=== PATIENT | female | born 1945 | race Caucasian/White ===

== ENCOUNTER 2020-09-29 16:19 | Inpatient (IN) | payer MEDICARE, BC ==
[2020-09-29] MEDS ORDERED: ACETAMINOPHEN TAB 500 MG TAB PO STA (18:07)
[2020-09-29] MEDS ORDERED: SODIUM CHLORIDE 0.9% 1,000 ML IV ONE (18:08)
--- NOTE | 2020-09-29 18:30 | ED ---
General Adult HPI - General Chief complaint: Nausea/Vomiting/Diarrhea Stated complaint: Diarreha Time Seen by Provider: 09/29/20 17:56 Source: patient, family, RN notes reviewed, old records reviewed Mode of arrival: wheelchair Limitations: no limitations - History of Present Illness Initial comments: This patient's a 75-year-old female who presents emergency room today with 10 days of fever or chills diarrhea. She's been exposed positive covid infection this past 2 weeks as her family members have all had positive tests for covid 19 infection. Patient states that she's been feeling weak, multiple near falls due to weakness dehydration from the diarrhea. Patient denies any significant shortness of breath at this time. - Related Data Allergies Allergy/AdvReac Type Severity Reaction Status Date / Time Sulfa (Sulfonamide Allergy Anaphylaxis Verified 09/29/20 16:36 Antibiotics) Review of Systems ROS Statement: Those systems with pertinent positive or pertinent negative responses have been documented in the HPI. ROS Other: All systems not noted in ROS Statement are negative. Past Medical History Past Medical History: Coronary Artery Disease (CAD), COPD, Diabetes Mellitus, Hyperlipidemia, Hypertension, Rheumatoid Arthritis (RA) History of Any Multi-Drug Resistant Organisms: None Reported Past Surgical History: No Surgical Hx Reported Past Psychological History: No Psychological Hx Reported Smoking Status: Former smoker Past Alcohol Use History: None Reported Past Drug Use History: None Reported General Exam - General Exam Comments Initial Comments: 75-year-old female. Alert. No distress. Patient appears somewhat weak. Limitations: no limitations General appearance: alert, in no apparent distress Head exam: Present: atraumatic, normocephalic, normal inspection Eye exam: Present: normal appearance, PERRL, EOMI. Absent: scleral icterus, conjunctival injection, periorbital swelling ENT exam: Present: normal exam, mucous membranes moist Neck exam: Present: normal inspection. Absent: tenderness, meningismus, lymphadenopathy Respiratory exam: Present: normal lung sounds bilaterally. Absent: respiratory distress, wheezes, rales, rhonchi, stridor Cardiovascular Exam: Present: regular rate, normal rhythm, normal heart sounds. Absent: systolic murmur, diastolic murmur, rubs, gallop, clicks GI/Abdominal exam: Present: soft, normal bowel sounds. Absent: distended, tenderness, guarding, rebound, rigid Extremities exam: Present: normal inspection, full ROM, normal capillary refill. Absent: tenderness, pedal edema, joint swelling, calf tenderness Back exam: Present: normal inspection Neurological exam: Present: alert, oriented X3, CN II-XII intact Psychiatric exam: Present: normal affect, normal mood Skin exam: Present: warm, dry, intact, normal color. Absent: rash Course Vital Signs 09/29/20 16:30 Temperature 102.0 F H Pulse Rate 90 Respiratory 22 Rate Blood Pressure 121/64 O2 Sat by Pulse 93 L Oximetry Medical Decision Making - Medical Decision Making 75-year-old female presents emergency department today with nausea and diarrhea for the past 10 days. She's been feeling very weak. She appears quickly dehydrated. She started on IV fluid bolus. She was exposed to her family members who all have positive testing. At this time Patient has a positive rapid [place] a test as well. She does have inflammatory markers are elevated including LDH and CRP. Her d-dimer was done to be elevated. Chest x-ray shows evidence of right-sided pneumonia. She was somewhat hypoxic 93% on room air. Discussed with patient's length symptoms dehydration weakness we will admit the Patient. Discussed the case with Dr. Blanco And Dr. Brito was an emergency department to evaluate Patient. - Lab Data Result diagrams: 09/29/20 18:07 09/29/20 18:07 Lab Results 09/29/20 09/29/20 09/29/20 Range/Units 18:07 18:07 18:07 WBC 4.1 (3.8-10.6) k/uL RBC 4.65 (3.80-5.40) m/uL Hgb 14.0 (11.4-16.0) gm/dL Hct 41.3 (34.0-46.0) % MCV 88.7 (80.0-100.0) fL MCH 30.1 (25.0-35.0) pg MCHC 34.0 (31.0-37.0) g/dL RDW 12.6 (11.5-15.5) % Plt Count 125 L (150-450) k/uL Neutrophils % (Manual) 67 % Band Neuts % (Manual) 6 % Lymphocytes % (Manual) 20 % Monocytes % (Manual) 7 % Neutrophils # (Manual) 2.90 (1.3-7.7) k/uL Lymphocytes # (Manual) 0.82 L (1.0-4.8) k/uL Monocytes # (Manual) 0.29 (0-1.0) k/uL Nucleated RBCs 0 (0-0) /100 WBC Manual Slide Review Performed PT 10.2 (9.0-12.0) sec INR 1.0 (<1.2) APTT 23.3 (22.0-30.0) sec D-Dimer 1.56 H (<0.60) mg/L FEU Sodium 132 L (137-145) mmol/L Potassium 5.3 H (3.5-5.1) mmol/L Chloride 101 (98-107) mmol/L Carbon Dioxide 22 (22-30) mmol/L Anion Gap 9 mmol/L BUN 16 (7-17) mg/dL Creatinine 0.72 (0.52-1.04) mg/dL Est GFR (CKD-EPI)AfAm >90 (>60 ml/min/1.73 sqM) Est GFR (CKD-EPI)NonAf 82 (>60 ml/min/1.73 sqM) Glucose 127 H (74-99) mg/dL Plasma Lactic Acid Parviz (0.7-2.0) mmol/L Calcium 8.6 (8.4-10.2) mg/dL Magnesium 1.9 (1.6-2.3) mg/dL Total Bilirubin 1.1 (0.2-1.3) mg/dL AST 60 H (14-36) U/L ALT 21 (4-34) U/L Alkaline Phosphatase 58 (38-126) U/L Lactate Dehydrogenase 1206 H (313-618) U/L C-Reactive Protein 52.5 H (<10.0) mg/L Total Protein 7.1 (6.3-8.2) g/dL Albumin 3.9 (3.5-5.0) g/dL Coronavirus (PCR) (Not Detectd) 09/29/20 09/29/20 Range/Units 18:07 18:30 WBC (3.8-10.6) k/uL RBC (3.80-5.40) m/uL Hgb (11.4-16.0) gm/dL Hct (34.0-46.0) % MCV (80.0-100.0) fL MCH (25.0-35.0) pg MCHC (31.0-37.0) g/dL RDW (11.5-15.5) % Plt Count (150-450) k/uL Neutrophils % (Manual) % Band Neuts % (Manual) % Lymphocytes % (Manual) % Monocytes % (Manual) % Neutrophils # (Manual) (1.3-7.7) k/uL Lymphocytes # (Manual) (1.0-4.8) k/uL Monocytes # (Manual) (0-1.0) k/uL Nucleated RBCs (0-0) /100 WBC Manual Slide Review PT (9.0-12.0) sec INR (<1.2) APTT (22.0-30.0) sec D-Dimer (<0.60) mg/L FEU Sodium (137-145) mmol/L Potassium (3.5-5.1) mmol/L Chloride (98-107) mmol/L Carbon Dioxide (22-30) mmol/L Anion Gap mmol/L BUN (7-17) mg/dL Creatinine (0.52-1.04) mg/dL Est GFR (CKD-EPI)AfAm (>60 ml/min/1.73 sqM) Est GFR (CKD-EPI)NonAf (>60 ml/min/1.73 sqM) Glucose (74-99) mg/dL Plasma Lactic Acid Parviz 1.3 (0.7-2.0) mmol/L Calcium (8.4-10.2) mg/dL Magnesium (1.6-2.3) mg/dL Total Bilirubin (0.2-1.3) mg/dL AST (14-36) U/L ALT (4-34) U/L Alkaline Phosphatase (38-126) U/L Lactate Dehydrogenase (313-618) U/L C-Reactive Protein (<10.0) mg/L Total Protein (6.3-8.2) g/dL Albumin (3.5-5.0) g/dL Coronavirus (PCR) Detected A (Not Detectd) - Radiology Data Radiology results: report reviewed Right pleural reaction peripheral right-sided pneumonia. Normal heart. No heart failure. Disposition Clinical Impression: COVID-19, Dehydration, Diarrhea, Hypoxia, Pneumonia Disposition: ADMITTED IP TO THIS HOSP Condition: Stable Is patient prescribed a controlled substance at d/c from ED?: No Referrals: Tony Mooney MD [Primary Care Provider] - 1-2 days Time of Disposition: 20:07
[2020-09-29] MEDS: SODIUM CHLORIDE 0.9% 1,000 ML IV SCH (18:47)
[2020-09-29 19:08] LABS: ALT 21 U/L (4-34); AST 60 U/L (14-36); African American GFR (CKD) >90 (>60 ml/min/1.73 sqM); Albumin 3.9 g/dL (3.5-5.0); Alkaline Phosphatase 58 U/L (38-126); Anion Gap 9 mmol/L; Blood Urea Nitrogen 16 mg/dL (7-17); C Reactive Protein 52.5 mg/L (<10.0); Calcium 8.6 mg/dL (8.4-10.2); Carbon Dioxide 22 mmol/L (22-30); Chloride 101 mmol/L (98-107); Glucose 127 mg/dL (74-99); LDH 1206 U/L (313-618); Magnesium 1.9 mg/dL (1.6-2.3); Non-African American GFR(CKD) 82 (>60 ml/min/1.73 sqM); Sodium 132 mmol/L (137-145); Total Bilirubin 1.1 mg/dL (0.2-1.3); Total Protein 7.1 g/dL (6.3-8.2)
[2020-09-29 19:11] LABS: Partial Thromboplastin Time 23.3 sec (22.0-30.0); Potassium 5.3 mmol/L (3.5-5.1); Prothrombin Time 10.2 sec (9.0-12.0)
[2020-09-29 19:14] LABS: D-Dimer 1.56 mg/L FEU (<0.60)
[2020-09-29 19:19] LABS: HCT 41.3 % (34.0-46.0); MCH 30.1 pg (25.0-35.0); MCV 88.7 fL (80.0-100.0); Platelet Count 125 k/uL (150-450); RBC 4.65 m/uL (3.80-5.40); RDW 12.6 % (11.5-15.5); WBC 4.1 k/uL (3.8-10.6)
--- NOTE | 2020-09-29 19:20 | XR ---
EXAMINATION TYPE: XR chest 1V portable DATE OF EXAM: 09/29/2020 COMPARISON: NONE HISTORY: Pneumonia. Chest pain TECHNIQUE: Single view FINDINGS: There is some increased density over the periphery of the right lung consistent with mild p neumonia. There is slight blunting right costophrenic angle. Heart size is normal. There are no hilar masses. Mediastinum is intact. Thoracic aorta is atheromatous. IMPRESSION: There is right pleural reaction and peripheral right side pneumonia. Normal heart. No hea rt failure.
[2020-09-29 19:58] LABS: Band Neutrophils % 6 %; Lymphocytes # (M) 0.82 k/uL (1.0-4.8); Monocytes # (M) 0.29 k/uL (0-1.0); Neutrophils % (M) 67 %; Nucleated Red Blood Cells 0 /100 WBC (0-0); Total Cells Counted 100
[2020-09-29] MEDS ORDERED: IBUPROFEN 400 MG TAB PO PRN (20:08)
[2020-09-29] MEDS ORDERED: NALOXONE 0.4 MG/ML 1 ML VIAL IV PRN (20:08)
[2020-09-29] MEDS ORDERED: KETOROLAC 15 MG/ML 1 ML VIAL IVP PRN (20:08)
[2020-09-29] MEDS ORDERED: MORPHINE SULFATE 4 MG/ML SYRINGE IV PRN (20:08)
[2020-09-29] MEDS ORDERED: ACETAMINOPHEN TAB 325 MG TAB PO PRN (20:08)
[2020-09-29] MEDS ORDERED: ONDANSETRON 4 MG/2 ML VIAL IVP PRN (20:08)
--- NOTE | 2020-09-29 20:47 | CT ---
EXAMINATION TYPE: CT angio chest DATE OF EXAM: 09/29/2020 COMPARISON: None HISTORY: elevated d dimer/ covid + CT DLP: 250.8 mGycm Automated exposure control for dose reduction was used. CONTRAST: Performed with IV Contrast, patient injected with 100 mL of Isovue 370. There are 3-D post processed images. There are some peripheral patchy groundglass interstitial pulmon alem infiltrates bilaterally. Heart size is normal. There is no pericardial effusion. There is no pleu ral effusion. Upper abdominal soft tissues are intact. There are no hilar masses. There are multiple mediastinal lymph nodes that measure up to 1 cm. Thoracic aorta is atheromatous. There are bilateral bronchial lymph nodes measuring up to 1 cm. There is coronary artery calcification. Thoracic aorta sh ows no aneurysm. The ascending aorta measures 3.2 cm. The bony thorax is intact. I see no evidence of filling defect in the pulmonary arteries. There is a 2.5 cm cavitating infiltrate in the lingula left upper lobe adjacent to the left cardiac b order. IMPRESSION: Cavitating left pulmonary infiltrate is nonspecific. Peripheral bilateral groundglass pulmonary interstitial infiltrates. No evidence of pulmonary embolism. Nonspecific mediastinal and bronchial mild adenopathy.
[2020-09-29] MEDS ORDERED: ENOXAPARIN 30 MG/0.3 ML SYRINGE SQ SCH (21:00)
[2020-09-29] MEDS ORDERED: HYDROcodone/APAP 5-325MG 1 EACH TAB PO PRN (22:16)
[2020-09-29] MEDS ORDERED: TEMAZEPAM 15 MG CAP PO PRN (22:16)
[2020-09-29] MEDS ORDERED: ALPRAZolam 0.25 MG TAB PO PRN (22:16)
[2020-09-29] MEDS ORDERED: ENOXAPARIN 30 MG/0.3 ML SYRINGE SQ STA (23:20)
[2020-09-29] MEDS: CALCIUM CARB-VIT D 500MG-200UN 1 EACH TAB PO SCH (23:20)
[2020-09-29] MEDS: FAMOTIDINE 20 MG TAB PO SCH (23:26)
[2020-09-29] MEDS: ZINC SULFATE 220 MG CAP PO SCH (23:42)
[2020-09-30 06:40] LABS: Basophils % (A) 1 %; Eosinophils % (A) 1 %; HCT 37.8 % (34.0-46.0); HGB 12.5 gm/dL (11.4-16.0); Lymphocytes # (A) 0.5 k/uL (1.0-4.8); Lymphocytes % (A) 14 %; MCH 29.9 pg (25.0-35.0); MCV 90.6 fL (80.0-100.0); Monocytes # (A) 0.3 k/uL (0-1.0); Monocytes % (A) 8 %; Neutrophils # (A) 2.7 k/uL (1.3-7.7); Neutrophils % (A) 76 %; Platelet Count 138 k/uL (150-450); RBC 4.17 m/uL (3.80-5.40); RDW 12.7 % (11.5-15.5); WBC 3.6 k/uL (3.8-10.6)
[2020-09-30 07:24] LABS: Glucose,Whole Blood 99 mg/dL (75-99)
--- NOTE | 2020-09-30 07:45 | HP ---
HISTORY AND PHYSICAL DATE OF SERVICE: 09/29/2020 CHIEF COMPLAINT: Nausea, vomiting, diarrhea, dehydration, and COVID-19. HISTORY OF PRESENT ILLNESS: This 75-year-old woman with a past medical history of multiple medical problems including COPD, CAD, diabetes, hypertension, hyperlipidemia, being followed by Dr. Mooney in the outpatient setting was not feeling well over the past 10 days with fever and chills and diarrhea. The patient was exposed to COVID. The patient has had multiple family members. Apparently the patient drove her grandson to a green party and he was living with them. The family was positive for COVID-19. Currently the patient is feeling weak. The patient has not been able to keep anything down. Patient has diarrhea, occasional cough. Patient came to [facility] and was admitted for further evaluation and treatment. The patient had multiple inflammatory markers of COVID including elevated LDH of 1206, CRP is 52.5, D-dimer is 1.56. COVID-19 rapid test was positive and the patient was admitted for further evaluation and treatment. A chest CT was also done which showed evidence of cavitating left pulmonary infiltrate with a nonspecific and peripheral bilateral ground-glass opacities and no evidence of pulmonary embolism. Patient admitted for further evaluation and treatment. The chest x-ray and EKG were personally reviewed by me. There is no history of headache, loss of consciousness, seizures at this time. The CT scan showed extensive bilateral inflammatory pulmonary lesions and also possibly cavitating lesion as well. The EKG which was personally reviewed by me showed QTc of 396 and normal sinus rhythm and nonspecific changes. There is no history of fever, rigors, chills at this time. PAST MEDICAL HISTORY: History of COPD, CAD, diabetes, hypertension, hyperlipidemia, rheumatoid arthritis. MEDICATIONS: Home medication list is not available. ALLERGIES: SULFA. FAMILY HISTORY: No history of heart disease or strokes in the family. SOCIAL HISTORY: Previous history of smoking. No history of current smoking or alcohol intake. REVIEW OF SYSTEMS: ENT: No diminished hearing or diminished vision. CARDIOVASCULAR: No angina or palpitations. RESPIRATORY: As mentioned earlier. GI: As mentioned earlier. : No dysuria. ALLERGY/IMMUNOLOGY: No asthma or hayfever. MUSCULOSKELETAL: As mentioned earlier. HEMATOLOGY/ONCOLOGY: No history of anemia. ENDOCRINE: As mentioned earlier. CONSTITUTIONAL: As mentioned earlier. DERMATOLOGY: Negative. RHEUMATOLOGY: Negative. PSYCHIATRY: As mentioned earlier. PHYSICAL EXAMINATION: GENERAL: Patient is alert and oriented times three. VITAL SIGNS: Pulse 90, blood pressure 120/64, respirations 22, temperature 102, pulse ox 93% on room air HEENT: Conjunctivae normal. Oral mucosa is moist. NECK: No jugular venous distention. No carotid bruits. No lymph node enlargement. RESPIRATORY: Breath sounds diminished at the bases. A few scattered rhonchi and crackles. HEART: S1 and S2, muffled. ABDOMEN: Soft, no tenderness. No masses palpable. EXTREMITIES: No edema, no swelling. NERVOUS: Higher functions as mentioned earlier. Moves all four limbs. No focal motor deficits. LYMPHATICS: No lymph nodes palpable in the neck or axillae. SKIN: No rashes. JOINTS: No active deforming arthropathy. LABS: Platelets are 125 and D-dimer is 1.5. Sodium 132, potassium 5.3, LDH 1206, CRP is 52.5. ASSESSMENT: 1. Acute COVID-19 infection with bilateral interstitial viral pneumonia with possible sepsis present on admission. 2. Possible cavitating pneumonia or possible rheumatoid lung. 3. Thrombocytopenia. 4. Elevated D-dimer with no evidence of pulmonary embolus. 5. Hyponatremia. 6. Hyperkalemia. 7. Elevated random glucose. 8. Increased AST. 9. Increased LDH and CRP. 10.History of coronary artery disease. 11.History of chronic obstructive pulmonary disease. 12.Diabetes mellitus type 2. 13.Hypertension. 14.Hyperlipidemia. 15.History of rheumatoid arthritis. 16.Remote history of nicotine dependence. 17.FULL CODE. RECOMMENDATIONS AND DISCUSSION: This is 75-year-old woman who presented with multiple complex medical issues, we will monitor the patient closely. I recommend continue the current medications, empiric antibiotics, steroids, Lovenox. Otherwise, we will also consult Pulmonary and Infectious Disease. The patient might be a candidate for Remdesivir. Inflammatory markers will be monitored daily. Prognosis is extremely guarded because of multiple complex medical issues. Discussed with the patient who understands. Further recommendations to follow. MMODL / IJN: [id number] /
[2020-09-30] MEDS: ZINC SULFATE 220 MG CAP PO SCH ×2 (08:57→20:30)
[2020-09-30] MEDS: CALCIUM CARB-VIT D 500MG-200UN 1 EACH TAB PO SCH ×2 (08:57→17:08)
[2020-09-30] MEDS: FAMOTIDINE 20 MG TAB PO SCH ×2 (08:57→20:30)
[2020-09-30] MEDS: DEXAMETHASONE SOD PHOSPHATE 10 MG/ML 1 ML VIAL IV SCH (08:57)
[2020-09-30] MEDS: ENOXAPARIN 40 MG/0.4 ML SYRINGE SQ SCH ×2 (08:57→20:30)
[2020-09-30] MEDS ORDERED: ENOXAPARIN 30 MG/0.3 ML SYRINGE SQ SCH (09:00)
[2020-09-30] MEDS ORDERED: PANTOPRAZOLE 40 MG/10 ML VIAL IV SCH (09:00)
[2020-09-30 09:43] LABS: African American GFR (CKD) 97.5 (60.0-200.0); Anion Gap 7.1 mmol/L (4.00-12.00); BUN/Creat Ratio 18.57 Ratio (12.00-20.00); Carbon Dioxide 25.9 mmol/L (21.6-31.8); Non-African American GFR(CKD) 84.2 (60.0-200.0); Potassium 3.9 mmol/L (3.5-5.5)
[2020-09-30] MEDS ORDERED: REMDESIVIR (EUA) 200 MG in SODIUM CHLORIDE 0.9% 250 ML IVPB ONE (11:00)
[2020-09-30 11:54] LABS: Glucose,Whole Blood 140 mg/dL (75-99)
--- NOTE | 2020-09-30 14:19 | P.CNPUL ---
History of Present Illness Consult date: 09/30/20 Requesting physician: Benjamín Brito Reason for consult: dyspnea, abnormal CXR/CT (CoVID pneumonitis) Chief complaint: Shortness of breath, weakness, fever for 10 days History of present illness: This is a pleasant 75-year-old female patient who follows with Dr. Mooney as her primary care physician. She resides in [place]. She has a history of coronary artery disease, chronic obstructive disease, diabetes mellitus type 2, hypertension, hyperlipidemia, rheumatoid arthritis, remote smoking history. She presented to the emergency room yesterday with a 10 day history of fever, chills, diarrhea. She had been exposed to positive Covid 19 family members. She has been feeling weak, multiple near falls due to weakness, dehydration and diarrhea. She also had some mild shortness of breath. Rapid Covid 19 screen was positive. Chest x-ray revealed right pleural reaction and peripheral right- sided pneumonia. Computed tomography scan of the chest revealed a cavitating left pulmonary infiltrate, nonspecific. There is peripheral bilateral groundglass pulmonary interstitial infiltrates. No evidence of pulmonary embolism. She is seen today in consultation on the regular medical floor. She is awake and alert in no acute distress. She is febrile with a temperature of 100.0. She is maintaining O2 saturations in the 90s on room air. Currently 92%. White count 3.6. Hemoglobin 12.5. Lymphocytes 0.5. Sodium 139. Potassium 3.9. Creatinine 0.7. Pro-calcitonin 0.10. Ferritin 359. D-dimer 1.56. LDH 1206. C-reactive protein 52.5. Review of Systems REVIEW OF SYSTEMS: CONSTITUTIONAL: Weakness, fatigue, near falls, diarrhea and dehydration. Denies any recent significant weight loss or weight gain. EYES: Denies change in vision. EARS, NOSE, MOUTH, THROAT: Denies headaches, denies sore throat. CARDIOVASCULAR: Denies chest pain, palpitations or syncopal episodes. RESPIRATORY: Positive for shortness of breath, cough, no congestion or hemoptysis. GASTROINTESTINAL: Positive for diarrhea. Denies change in appetite, denies abdominal pain GENITOURINARY: Denies hematuria, denies infections. MUSKULOSKELETAL: Denies pain, denies swelling. INTEGUMENTARY: Denies rash, denies eczema. NEUROLOGICAL: Denies recent memory loss, no recent seizure activity. PSYCHIATRIC: Denies anxiety, denies depression. HEMATOLOGIC/LYMPHATIC: Denies anemia, denies enlarged lymph nodes. Past Medical History Past Medical History: Coronary Artery Disease (CAD), COPD, Diabetes Mellitus, Hyperlipidemia, Hypertension, Rheumatoid Arthritis (RA) History of Any Multi-Drug Resistant Organisms: None Reported Past Surgical History: No Surgical Hx Reported Past Psychological History: No Psychological Hx Reported Smoking Status: Former smoker Past Alcohol Use History: None Reported Past Drug Use History: None Reported Medications and Allergies Home Medications Medication Instructions Recorded Confirmed Type Albuterol Sulfate [Albuterol 2 puff PO Q6H PRN 09/30/20 09/30/20 History Sulfate Hfa] Ascorbic Acid [Vitamin C] 1,000 mg PO DAILY 09/30/20 09/30/20 History Atorvastatin [Lipitor] 10 mg PO DAILY 09/30/20 09/30/20 History Cholecalciferol [Vitamin D3 (25 1,000 unit PO DAILY 09/30/20 09/30/20 History Mcg = 1000 Iu)] Citalopram Hydrobromide [CeleXA] 20 mg PO DAILY 09/30/20 09/30/20 History Levothyroxine Sodium [Synthroid] 50 mcg PO DAILY 09/30/20 09/30/20 History Losartan [Cozaar] 25 mg PO DAILY 09/30/20 09/30/20 History metFORMIN HCL [Glucophage] 500 mg PO BID-W/MEALS 09/30/20 09/30/20 History Allergies Allergy/AdvReac Type Severity Reaction Status Date / Time Sulfa (Sulfonamide Allergy Anaphylaxis Verified 09/29/20 16:36 Antibiotics) Physical Exam Vitals: Vital Signs Temp Pulse Pulse Resp BP BP Pulse Ox 09/30/20 08:00 73 14 09/30/20 07:00 100.0 F H 73 14 118/55 92 L 09/30/20 04:00 108 H 20 09/30/20 00:30 97.3 F L 108 H 20 127/62 98 09/29/20 23:43 97.9 F 65 16 116/68 95 09/29/20 16:30 102.0 F H 90 22 121/64 93 L Intake and Output 09/29/20 09/30/20 09/30/20 22:59 06:59 14:59 Intake Total 100 Balance 100 Intake: Oral 100 Other: # Voids 1 Weight 65.771 kg 65.771 kg GENERAL EXAM: Alert, active, comfortable in no apparent distress. HEAD: Normocephalic. EYES: Normal reaction of pupils, equal size. NOSE: Clear with pink turbinates. THROAT: No erythema or exudates. NECK: No masses, no JVD. CHEST: No chest wall deformity. LUNGS: Equal air entry with few scattered rhonchi bilaterally CVS: S1 and S2 normal with no audible murmur, regular rhythm. ABDOMEN: No hepatosplenomegaly, normal bowel sounds, no guarding or rigidity. SPINE: No scoliosis or deformity SKIN: No rashes CENTRAL NERVOUS SYSTEM: No focal deficits, tone is normal in all 4 extremities. EXTREMITIES: There is no peripheral edema. No clubbing, no cyanosis. Peripheral pulses are intact. Results - Laboratory Findings CBC and BMP: 09/30/20 06:25 09/30/20 06:25 PT/INR, D-dimer PT 10.2 sec (9.0-12.0) 09/29/20 18:07 INR 1.0 (<1.2) 09/29/20 18:07 D-Dimer 1.56 mg/L FEU (<0.60) H 09/29/20 18:07 Abnormal lab findings: Abnormal Labs 09/29/20 09/29/20 09/29/20 18:07 18:07 18:07 WBC Plt Count 125 L Lymphocytes # Lymphocytes # (Manual) 0.82 L D-Dimer 1.56 H Sodium 132 L Potassium 5.3 H Glucose 127 H POC Glucose (mg/dL) Calcium Ferritin AST 60 H Lactate Dehydrogenase 1206 H C-Reactive Protein 52.5 H Procalcitonin Coronavirus (PCR) 09/29/20 09/29/20 09/29/20 18:30 Unknown Unknown WBC Plt Count Lymphocytes # Lymphocytes # (Manual) D-Dimer Sodium Potassium Glucose POC Glucose (mg/dL) Calcium Ferritin 359.2 H AST Lactate Dehydrogenase C-Reactive Protein Procalcitonin 0.10 H Coronavirus (PCR) Detected A 09/30/20 09/30/20 09/30/20 06:25 06:25 11:53 WBC 3.6 L Plt Count 138 L Lymphocytes # 0.5 L Lymphocytes # (Manual) D-Dimer Sodium Potassium Glucose POC Glucose (mg/dL) 140 H Calcium 8.0 L Ferritin AST Lactate Dehydrogenase C-Reactive Protein Procalcitonin Coronavirus (PCR) - Diagnostic Findings Chest x-ray: image reviewed CT scan - chest: image reviewed Assessment and Plan Assessment: 1 Acute hypoxic respiratory failure secondary to acute CoVID 19 pneumonitis 2 Elevated inflammatory markers secondary to above 3 Dehydration, weakness, diarrhea secondary to above 4 Rheumatoid arthritis 5 Diabetes mellitus 6 Chronic obstructive 7 History of chronic tobacco dependence 8 Coronary artery disease and 9 Hypertension 10 Hyperlipidemia Plan: The patient was seen and evaluated by Dr. Negron She will be initiated on Remdesivir Continue dexamethasone, Lovenox Repeat chest x-ray and labs in a.m. Continue to monitor O2 saturations Action supplementation as needed Continue isolation precautions We will continue to follow and make further recommendations based on her clinical status I, the cosigning physician, performed a history & physical examination of the patient. Lungs sounds with bilateral rhonchi. Maintaining good O2 saturations in the 90s on room air. I discussed the assessment and plan of care with my nurse practitioner, Stephanie Posada. I attest to the above consultation as dictated by her. Time with Patient: Greater than 30
[2020-09-30 16:42] LABS: Glucose,Whole Blood 192 mg/dL (75-99)
--- NOTE | 2020-09-30 16:54 | CT ---
EXAMINATION TYPE: CT brain wo con DATE OF EXAM: 09/30/2020 COMPARISON: None HISTORY: Altered mental status. CT DLP: 1025.4 mGycm Automated exposure control for dose reduction was used. Ventricles have normal size. There is mild cerebral atrophy. There is no mass effect nor midline shif t. There is no evidence of intracranial hemorrhage. The calvarium is intact. There is minimal white m atter hypodensity around the frontal horns of the lateral ventricles. IMPRESSION: Mild atrophy and chronic small vessel ischemia. No acute abnormality.
[2020-09-30 16:59] LABS: Appearance,Urine Clear (Clear); Bilirubin,Urine Negative (Negative); Blood,Urine Negative (Negative); Color,Urine Light Yellow; Glucose,Urine (UA) 3+ (Negative); Ketones,Urine 1+ (Negative); Leukocyte Esterase,Urine Negative (Negative); Nitrite,Urine Negative (Negative); PH, Urine 6.5 (5.0-8.0); Protein,Urine Negative (Negative); Specific Gravity,Urine 1.009 (1.001-1.035); Urobilinogen,Urine <2.0 mg/dL (<2.0)
--- NOTE | 2020-09-30 18:29 | PN ---
PROGRESS NOTE DATE OF SERVICE: 09/30/2020 This 75-year-old woman who was admitted with acute Covid-19 infection had predominant gastrointestinal symptoms. The patient has a bilateral interstitial pneumonia suggestive of Covid-19 pneumonia. The patient was started on Remdesivir. The patient being closely monitored. The patient has extensive ground-glass opacities. The patient also had mild confusion and a CT scan of the brain was also done to complete the workup which showed mild atrophy and chronic small-vessel ischemia. Past medical history reviewed. REVIEW OF SYSTEMS: CARDIOVASCULAR: No angina or palpitations. RESPIRATORY: As mentioned earlier. GI: As mentioned earlier. no dysuria or hematuria. NERVOUS SYSTEMS: No numbness or weakness. CURRENT MEDICATIONS: Reviewed and include: 1. Tylenol. 2. Worth. 3. Xanax. 4. Os-Sanjeev with vitamin D. 5. Lovenox. 6. Pepcid. 7. Motrin. 8. Narcan. 9. Zofran. 10.Remdesivir. 11.Restoril. 12.Oral zinc. PHYSICAL EXAM: Patient is alert, oriented x3. Pulse is 59. Blood pressure 120/60, respirations 16, temperature 97.6, pulse ox 94% on room air. HEENT is conjunctivae normal. NECK: No JVD. CARDIOVASCULAR: S1, S2 muffled. RESPIRATORY: Breath sounds diminished at the bases. A few scattered rhonchi and crackles. ABDOMEN: Soft, nontender. NERVOUS SYSTEM: No focal deficits. LABS: CBC, WBC 3.6, platelets are 138. ASSESSMENT: 1. Acute COVID-19 infection with bilateral interstitial viral pneumonia with possible sepsis, present on admission. 2. Possible cavitating pneumonia with possible rheumatoid lung. 3. Nausea, vomiting, diarrhea secondary to Covid-19. 4. Thrombocytopenia. 5. Leukopenia secondary to Covid-19. 6. Elevated D-dimer with no evidence of pulmonary embolism. 7. Hyponatremia. 8. Hyperkalemia. 9. Elevated random glucose. 10.Increased AST. 11.Increased LDH and CRP. 12.History of coronary artery disease. 13.History of chronic obstructive pulmonary disease. 14.Diabetes mellitus, Type 2. 15.Hypertension. 16.Hyperlipidemia. 17.History of rheumatoid arthritis. 18.Remote history of nicotine dependence. 19.FULL CODE. RECOMMENDATIONS AND DISCUSSION: Recommend to continue current medication, continue symptomatic treatment. Otherwise at this time I would recommend continue the bronchodilators. Procalcitonin 0.1. We will monitor the inflammatory markers of the disease of the Covid-19. Continue with Remdesivir. The prognosis guarded because of multiple complex medical issues. Further recommendations to follow. Closely follow with Dr. Negron. MMDGL / VIVIN: [id number] /
[2020-09-30] MEDS: SODIUM CHLORIDE 0.9% 1,000 ML IV SCH ×2 (18:49→20:31)
[2020-09-30 21:38] LABS: Glucose,Whole Blood 214 mg/dL (75-99)
--- NOTE | 2020-10-01 00:01 | P.CONS ---
History of Present Illness - Reason for Consult Consult date: 09/30/20 Covid 19 Requesting physician: Benjamín Brito - Chief Complaint Weakness x few days - History of Present Illness Patient is an 75-year-old female presenting to the ER at [facility] yesterday for evaluation of increasing shortness of breath fever and chills symptom has been going on for more than a week this patient who did have multiple family member positive for Covid 19, the patient may symptom has been generalized weakness no energy and did have multiple falls because of the weakness she is also, during of diarrhea with multiple loose stools, patient also complaining of cough which is moderate intensity starting up any sputum no pleuritic chest pain did have some shortness of breath and significant URI symptoms, on arrival to the ER the patient did have a fever of 102F the patient was tachycardic O2 sats of 93% on room air patient did have a normal white count did have lymphopenia patient did have elevated d-dimer, AST was elevated as well as LDH and CRP along with the pro-calcitonin of 0.10, chest x-ray with right- sided pneumonia patient did have CT angiogram of the chest which was negative for PE which was cavitated left pulmonary infiltrate nonspecific today for bilateral groundglass pulmonary interstitial infiltrate, subsequently zaragoza PCR came back positive patient has been admitted to the hospital infectious disease was consulted for further management Past Medical History Past Medical History: Coronary Artery Disease (CAD), COPD, Diabetes Mellitus, Hyperlipidemia, Hypertension, Rheumatoid Arthritis (RA) History of Any Multi-Drug Resistant Organisms: None Reported Past Surgical History: No Surgical Hx Reported Past Psychological History: No Psychological Hx Reported Smoking Status: Former smoker Past Alcohol Use History: None Reported Past Drug Use History: None Reported Medications and Allergies Home Medications Medication Instructions Recorded Confirmed Type Albuterol Sulfate [Albuterol 2 puff PO Q6H PRN 09/30/20 09/30/20 History Sulfate Hfa] Ascorbic Acid [Vitamin C] 1,000 mg PO DAILY 09/30/20 09/30/20 History Atorvastatin [Lipitor] 10 mg PO DAILY 09/30/20 09/30/20 History Cholecalciferol [Vitamin D3 (25 1,000 unit PO DAILY 09/30/20 09/30/20 History Mcg = 1000 Iu)] Citalopram Hydrobromide [CeleXA] 20 mg PO DAILY 09/30/20 09/30/20 History Levothyroxine Sodium [Synthroid] 50 mcg PO DAILY 09/30/20 09/30/20 History Losartan [Cozaar] 25 mg PO DAILY 09/30/20 09/30/20 History metFORMIN HCL [Glucophage] 500 mg PO BID-W/MEALS 09/30/20 09/30/20 History Allergies Allergy/AdvReac Type Severity Reaction Status Date / Time Sulfa (Sulfonamide Allergy Anaphylaxis Verified 09/29/20 16:36 Antibiotics) Physical Exam Vitals: Vital Signs Temp Pulse Pulse Resp BP BP Pulse Ox 09/30/20 08:00 73 14 09/30/20 07:00 100.0 F H 73 14 118/55 92 L 09/30/20 04:00 108 H 20 09/30/20 00:30 97.3 F L 108 H 20 127/62 98 09/29/20 23:43 97.9 F 65 16 116/68 95 09/29/20 16:30 102.0 F H 90 22 121/64 93 L Intake and Output 09/29/20 09/30/20 09/30/20 22:59 06:59 14:59 Intake Total 100 Balance 100 Intake: Oral 100 Other: # Voids 1 Weight 65.771 kg 65.771 kg GENERAL DESCRIPTION: An daily female lying in bed, no distress. No tachypnea or accessory muscle of respiration use. HEENT: Shows Pallor , no scleral icterus. Oral mucous membrane is dry. No pharyngeal erythema or thrush NECK: Trachea central, no thyromegaly. LUNGS: Unlabored breathing. Decreased breaths on the base. No wheeze or crackle. HEART: S1, S2, regular rate and rhythm. No loud murmur ABDOMEN: Soft, no tenderness , guarding or rigidity, no organomegaly EXTREMITIES: No edema of feet. SKIN: No rash, no masses palpable. NEUROLOGICAL: The patient is awake, alert, oriented x3, mood and affect normal. Results CBC & Chem 7: 09/30/20 06:25 09/30/20 06:25 Labs: Abnormal Lab Results - Last 24 Hours (Table) 09/29/20 09/29/20 09/29/20 Range/Units 18:07 18:07 18:07 WBC (3.8-10.6) k/uL Plt Count 125 L (150-450) k/uL Lymphocytes # (1.0-4.8) k/uL Lymphocytes # (Manual) 0.82 L (1.0-4.8) k/uL D-Dimer 1.56 H (<0.60) mg/L FEU Sodium 132 L (137-145) mmol/L Potassium 5.3 H (3.5-5.1) mmol/L Glucose 127 H (74-99) mg/dL POC Glucose (mg/dL) (75-99) mg/dL Calcium (8.7-10.3) mg/dL Ferritin (10.0-291.0) ng/mL AST 60 H (14-36) U/L Lactate Dehydrogenase 1206 H (313-618) U/L C-Reactive Protein 52.5 H (<10.0) mg/L Procalcitonin (0.02-0.09) ng/mL Coronavirus (PCR) (Not Detectd) 09/29/20 09/29/20 09/29/20 Range/Units 18:30 Unknown Unknown WBC (3.8-10.6) k/uL Plt Count (150-450) k/uL Lymphocytes # (1.0-4.8) k/uL Lymphocytes # (Manual) (1.0-4.8) k/uL D-Dimer (<0.60) mg/L FEU Sodium (137-145) mmol/L Potassium (3.5-5.1) mmol/L Glucose (74-99) mg/dL POC Glucose (mg/dL) (75-99) mg/dL Calcium (8.7-10.3) mg/dL Ferritin 359.2 H (10.0-291.0) ng/mL AST (14-36) U/L Lactate Dehydrogenase (313-618) U/L C-Reactive Protein (<10.0) mg/L Procalcitonin 0.10 H (0.02-0.09) ng/mL Coronavirus (PCR) Detected A (Not Detectd) 09/30/20 09/30/20 09/30/20 Range/Units 06:25 06:25 11:53 WBC 3.6 L (3.8-10.6) k/uL Plt Count 138 L (150-450) k/uL Lymphocytes # 0.5 L (1.0-4.8) k/uL Lymphocytes # (Manual) (1.0-4.8) k/uL D-Dimer (<0.60) mg/L FEU Sodium (137-145) mmol/L Potassium (3.5-5.1) mmol/L Glucose (74-99) mg/dL POC Glucose (mg/dL) 140 H (75-99) mg/dL Calcium 8.0 L (8.7-10.3) mg/dL Ferritin (10.0-291.0) ng/mL AST (14-36) U/L Lactate Dehydrogenase (313-618) U/L C-Reactive Protein (<10.0) mg/L Procalcitonin (0.02-0.09) ng/mL Coronavirus (PCR) (Not Detectd) Assessment and Plan Assessment: 1- patient presented to the hospital with sepsis in this patient did have a fever tachycardia sources acute Covid 19 pneumonia in this patient with evidence of elevated AST and LDH, CRP and bilateral groundglass opacities on the CT high clinical suspicious for acute covid 19 pneumonia, with low clinical suspicious for bacterial pneumonia (1) Sepsis Current Visit: Yes Status: Acute Code(s): A41.9 - SEPSIS, UNSPECIFIED ORGANISM SNOMED Code(s): 47540984 (2) Pneumonia due to COVID-19 virus Current Visit: Yes Status: Acute Code(s): U07.1 - COVID-19; J12.89 - OTHER VIRAL PNEUMONIA SNOMED Code(s): 595109491426277202 Plan: 1- patient has been appropriately started on Remdisivir to continue 2- Lovenox dexamethasone and zinc sulfate 3- droplet isolation and respiratory support We will follow on clinical condition and cultures to further adjust medication if needed Thank you for this consultation will follow this patient with you Time with Patient: Greater than 30
[2020-10-01 06:33] LABS: Basophils % (A) 0 %; Eosinophils % (A) 0 %; HCT 35.9 % (34.0-46.0); Lymphocytes # (A) 0.6 k/uL (1.0-4.8); Lymphocytes % (A) 11 %; MCH 30.2 pg (25.0-35.0); MCHC 33.3 g/dL (31.0-37.0); MCV 90.7 fL (80.0-100.0); Monocytes # (A) 0.3 k/uL (0-1.0); Monocytes % (A) 5 %; Neutrophils # (A) 4.6 k/uL (1.3-7.7); Neutrophils % (A) 82 %; Platelet Count 157 k/uL (150-450); RBC 3.96 m/uL (3.80-5.40); RDW 12.8 % (11.5-15.5); WBC 5.6 k/uL (3.8-10.6)
[2020-10-01] MEDS: ENOXAPARIN 40 MG/0.4 ML SYRINGE SQ SCH ×2 (07:18→20:35)
[2020-10-01] MEDS: CALCIUM CARB-VIT D 500MG-200UN 1 EACH TAB PO SCH ×2 (07:19→17:07)
[2020-10-01] MEDS: FAMOTIDINE 20 MG TAB PO SCH ×2 (07:19→20:35)
[2020-10-01] MEDS: DEXAMETHASONE SOD PHOSPHATE 10 MG/ML 1 ML VIAL IV SCH (07:19)
[2020-10-01] MEDS: ZINC SULFATE 220 MG CAP PO SCH ×2 (07:19→20:35)
--- NOTE | 2020-10-01 07:44 | XR ---
EXAMINATION TYPE: XR chest 1V portable DATE OF EXAM: 10/01/2020 HISTORY: Covid pneumonitis COMPARISON: 09/29/2020 TECHNIQUE: Single view of the chest is submitted. FINDINGS: Demonstrated are scattered senescent parenchymal change. Peripheral infiltrate noted throughout the right lung has progressed since prior examination. Mildly increased interstitial infiltrate noted within the left midlung zone as well. The heart is stable. Hilar and mediastinal structures are within normal limits. Degenerative changes are seen of the dorsal spine. IMPRESSION: 1. Findings suggest progressive pneumonia.
[2020-10-01 09:22] LABS: African American GFR (CKD) 102.6 (60.0-200.0); Anion Gap 7.6 mmol/L (4.00-12.00); BUN/Creat Ratio 21.67 Ratio (12.00-20.00); Calcium 8.1 mg/dL (8.7-10.3); Carbon Dioxide 24.4 mmol/L (21.6-31.8); Non-African American GFR(CKD) 88.5 (60.0-200.0)
[2020-10-01] MEDS: ASCORBIC ACID 500 MG TAB PO SCH (11:17)
[2020-10-01] MEDS: REMDESIVIR (EUA) 100 MG in SODIUM CHLORIDE 0.9% 250 ML IVPB SCH (11:18)
--- NOTE | 2020-10-01 15:09 | P.PN ---
Subjective Progress Note Date: 10/01/20 Principal diagnosis: CoVID 19 viral infection This is a pleasant 75-year-old female patient who follows with Dr. Mooney as her primary care physician. She resides in [place]. She has a history of coronary artery disease, chronic obstructive disease, diabetes mellitus type 2, hypertension, hyperlipidemia, rheumatoid arthritis, remote smoking history. She presented to the emergency room yesterday with a 10 day history of fever, chills, diarrhea. She had been exposed to positive Covid 19 family members. She has been feeling weak, multiple near falls due to weakness, dehydration and diarrhea. She also had some mild shortness of breath. Rapid Covid 19 screen was positive. Chest x-ray revealed right pleural reaction and peripheral right- sided pneumonia. Computed tomography scan of the chest revealed a cavitating left pulmonary infiltrate, nonspecific. There is peripheral bilateral groundglass pulmonary interstitial infiltrates. No evidence of pulmonary embolism. She is seen today in consultation on the regular medical floor. She is awake and alert in no acute distress. She is febrile with a temperature of 100.0. She is maintaining O2 saturations in the 90s on room air. Currently 92%. White count 3.6. Hemoglobin 12.5. Lymphocytes 0.5. Sodium 139. Potassium 3.9. Creatinine 0.7. Pro-calcitonin 0.10. Ferritin 359. D-dimer 1.56. LDH 1206. C-reactive protein 52.5. The patient is seen today 10/01/2020 in follow-up on the regular medical floor. She is currently resting comfortably in bed. Awake and alert in no acute distress. Maintaining O2 saturation in the low 90s on room air. She's been afebrile. Hemodynamically stable. White count 5.6. Hemoglobin 12.0. Lymphocytes 0.6. D-dimer 0.81. Sodium 143. Potassium 4.0. Creatinine 0.6. LDH 357. C-reactive protein 7.0. This is day #2 of Remdesivir. Continued on vitamin C, vitamin D, Decadron, Lovenox, Pepcid, zinc. Chest x-ray continues to show peripheral infiltrate throughout the right lung which has progressed. Mild interstitial infiltrate in the left mid lung zone as well. Computed tomography scan of the brain was performed yesterday for some altered mental status. No acute abnormalities detected. Objective - Vital Signs Vital signs: Vital Signs Temp 97.3 F L 10/01/20 07:00 Pulse 59 L 10/01/20 07:00 Resp 18 10/01/20 07:20 BP 131/63 10/01/20 07:00 Pulse Ox 93 L 10/01/20 07:00 Intake & Output 09/30/20 10/01/20 10/01/20 18:59 06:59 18:59 Intake Total 250 300 250 Balance 250 300 250 Intake: Intake, IV Titration 250 300 250 Amount Remdesivir (Eua) 100 mg 250 250 In Sodium Chloride 0.9% 250 ml @ 250 mls/hr IVPB Q24H JUAN MANUEL Rx#:[id number] Sodium Chloride 0.9% 1, 300 000 ml @ 100 mls/hr IV . Q10H JUAN MANUEL Rx#:[id number] Other: Voiding Method Bedside Commode Bedside Commode # Voids 3 # Bowel Movements 1 - Exam GENERAL EXAM: Alert, pleasant 75-year-old female patient, on room air, comfortable in no apparent distress. HEAD: Normocephalic. EYES: Normal reaction of pupils, equal size. NOSE: Clear with pink turbinates. THROAT: No erythema or exudates. NECK: No masses, no JVD. CHEST: No chest wall deformity. LUNGS: Equal air entry with few scattered rhonchi bilaterally CVS: S1 and S2 normal with no audible murmur, regular rhythm. ABDOMEN: No hepatosplenomegaly, normal bowel sounds, no guarding or rigidity. SPINE: No scoliosis or deformity SKIN: No rashes CENTRAL NERVOUS SYSTEM: No focal deficits, tone is normal in all 4 extremities. EXTREMITIES: There is no peripheral edema. No clubbing, no cyanosis. Peripheral pulses are intact. - Labs CBC & Chem 7: 10/01/20 06:16 10/01/20 06:16 Labs: Abnormal Lab Results - Last 24 Hours (Table) 09/30/20 09/30/20 09/30/20 Range/Units 16:40 16:46 21:34 Lymphocytes # (1.0-4.8) k/uL D-Dimer (<0.60) mg/L FEU Chloride (96-109) mmol/L BUN/Creatinine Ratio (12.00-20.00) Ratio Glucose (70-110) mg/dL POC Glucose (mg/dL) 192 H 214 H (75-99) mg/dL Calcium (8.7-10.3) mg/dL Lactate Dehydrogenase (120-246) U/L C-Reactive Protein (0.0-0.8) mg/dL Urine Glucose (UA) 3+ H (Negative) Urine Ketones 1+ H (Negative) 10/01/20 10/01/20 10/01/20 Range/Units 06:16 06:16 06:16 Lymphocytes # 0.6 L (1.0-4.8) k/uL D-Dimer 0.81 H (<0.60) mg/L FEU Chloride 111 H (96-109) mmol/L BUN/Creatinine Ratio 21.67 H (12.00-20.00) Ratio Glucose 126 H (70-110) mg/dL POC Glucose (mg/dL) (75-99) mg/dL Calcium 8.1 L (8.7-10.3) mg/dL Lactate Dehydrogenase 357 H (120-246) U/L C-Reactive Protein 7.0 H (0.0-0.8) mg/dL Urine Glucose (UA) (Negative) Urine Ketones (Negative) Microbiology - Last 24 Hours (Table) 09/29/20 18:07 Blood Culture - Preliminary Blood No Growth after 24 hours Assessment and Plan Assessment: 1 Acute hypoxic respiratory failure secondary to acute CoVID 19 pneumonitis 2 Elevated inflammatory markers secondary to above 3 Dehydration, weakness, diarrhea secondary to above 4 Altered mental status secondary to above, computed tomography scan of the brain revealed no acute intracranial process 5 Diabetes mellitus 6 Chronic obstructive 7 History of chronic tobacco dependence 8 Coronary artery disease and 9 Hypertension 10 Hyperlipidemia 11 Rheumatoid arthritis Plan: The patient was seen and evaluated by Dr. Negron Chest x-ray and labs reviewed Continue Remdesivir Continue dexamethasone, Lovenox, Pepcid, vitamin C, D, zinc Continue to monitor O2 saturations Continue isolation precautions We will continue to follow and make further recommendations based on her clinical status I, the cosigning physician, performed a history & physical examination of the patient. Lungs sounds with bilateral rhonchi. Maintaining good O2 saturations in the 90s on room air. I discussed the assessment and plan of care with my nurse practitioner, Stephanie Posada. I attest to the above note as dictated by her.
--- NOTE | 2020-10-01 16:23 | PN ---
PROGRESS NOTE DATE OF SERVICE: 10/01/2020 This 75-year-old woman who was admitted with acute COVID-19 infection, bilateral pneumonia, is on Remdesivir. The patient also had apparently cavitating pneumonia. Also the most recent chest x-ray which was reviewed personally by me showed bilateral infiltrates at this time. The patient is also evaluated by Dr. Negron and as well as Dr. Chase. CT of the brain showed mild atrophy and chronic small vessel disease and no acute abnormality. PAST MEDICAL HISTORY: Reviewed. REVIEW OF SYSTEMS: CARDIOVASCULAR SYSTEM: No angina. RESPIRATORY: As mentioned earlier. GI: As mentioned earlier. : No dysuria. NERVOUS SYSTEM: Mild confusion. CURRENT MEDICATIONS: Include Tylenol, [place], Xanax, vitamin C, Os-Sanjeev with D, Decadron, Lovenox, Pepcid, Motrin, Narcan, Zofran, Remdesivir, oral zinc. PHYSICAL EXAM: Patient is alert, oriented x2. Pulse 59, blood pressure 130/60, respiration 16, temperature 97.2, pulse ox 93% on room air. HEENT: Conjunctivae normal. Oral mucosa moist. NECK: No jugular venous distention. No lymph node enlargement. CARDIOVASCULAR: S1, S2, muffled. No S3, no S4, RESPIRATORY: Diminished breath sounds at the bases. A few scattered rhonchi, no crackles. ABDOMEN: Soft, nontender. LEGS: No edema, no swelling. NERVOUS SYSTEM: No focal motor or sensory deficits. LABS: WBC 5.2, hemoglobin is 12 and D-dimer is 0.81. Glucose 126 and LDH 357. C-reactive protein 7. ASSESSMENT: 1. Acute COVID-19 infection with bilateral interstitial pneumonia with possible sepsis, present on admission. 2. Possible cavitating pneumonia with possible rheumatoid lung. 3. Nausea, vomiting, diarrhea secondary to COVID-19. 4. Thrombocytopenia secondary to COVID-19. 5. Leukopenia secondary to COVID-19. 6. Elevated D-dimer with no evidence of pulmonary embolism. 7. Hyponatremia. 8. Hyperkalemia. 9. Elevated random glucose. 10.Increased AST. 11.Increased LDH and CRP. 12.History of coronary artery disease. 13.History of chronic obstructive pulmonary disease. 14.Diabetes mellitus type 2. 15.Hypertension. 16.Hyperlipidemia. 17.Rheumatoid arthritis. 18.Remote history of nicotine dependence. 19.FULL CODE. RECOMMENDATIONS: Recommend to continue current medications, continue to monitor, continue symptomatic treatment. Otherwise at this time I recommend continue with Remdesivir. Continue with the rest of the medications. Follow closely with inflammatory markers. The prognosis is extremely guarded because of multiple complex medical issues. Supplement vitamins. Further recommendations to follow. See orders for details. MMODL / IJN: [id number] /
[2020-10-01] MEDS: SODIUM CHLORIDE 0.9% 1,000 ML IV SCH ×2 (18:42→20:35)
[2020-10-01 21:14] LABS: Glucose,Whole Blood 173 mg/dL (75-99)
[2020-10-02] MEDS: LEVOTHYROXINE 50 MCG TAB PO SCH (05:27)
[2020-10-02] MEDS: SODIUM CHLORIDE 0.9% 1,000 ML IV SCH ×3 (05:27→19:49)
--- NOTE | 2020-10-02 05:59 | PN ---
PROGRESS NOTE DATE OF SERVICE: 10/01/2020 REASON FOR FOLLOWUP: COVID-19 pneumonia. INTERVAL HISTORY: The patient is currently afebrile. The patient is breathing comfortably. The patient denies having any chest pain. Occasional cough. No nausea, no vomiting. No abdominal pain or diarrhea. PHYSICAL EXAMINATION: Blood pressure 134/63 with a pulse of 68, temperature 97.7. She is 95% on room air. General description is an elderly female lying in bed in no distress. RESPIRATORY SYSTEM: Unlabored breathing, decreased breath sounds at the bases. No wheeze. HEART: S1, S2. Regular rate and rhythm. ABDOMEN: Soft, no tenderness. LABS: Hemoglobin is 12, white count 5.6, creatinine 0.6. DIAGNOSTIC IMPRESSION AND PLAN: Patient with acute COVID-19 pneumonia in this patient clinically responded to remdesivir, Lovenox and Decadron to continue while monitoring clinical course closely. Continue with supportive care. MMODL / IJN: [id number] /
[2020-10-02 06:26] LABS: Basophils # (A) 0.1 k/uL (0-0.2); Basophils % (A) 1 %; Eosinophils % (A) 1 %; HCT 35.6 % (34.0-46.0); HGB 12.1 gm/dL (11.4-16.0); Lymphocytes # (A) 0.6 k/uL (1.0-4.8); Lymphocytes % (A) 9 %; MCH 30.6 pg (25.0-35.0); MCV 89.9 fL (80.0-100.0); Monocytes # (A) 0.4 k/uL (0-1.0); Monocytes % (A) 6 %; Neutrophils # (A) 5.3 k/uL (1.3-7.7); Neutrophils % (A) 82 %; Platelet Count 168 k/uL (150-450); RBC 3.96 m/uL (3.80-5.40); WBC 6.5 k/uL (3.8-10.6)
[2020-10-02 07:17] LABS: Glucose,Whole Blood 129 mg/dL (75-99)
[2020-10-02] MEDS: DEXAMETHASONE SOD PHOSPHATE 10 MG/ML 1 ML VIAL IV SCH (08:37)
[2020-10-02] MEDS: ENOXAPARIN 40 MG/0.4 ML SYRINGE SQ SCH ×2 (08:37→19:48)
[2020-10-02] MEDS: FAMOTIDINE 20 MG TAB PO SCH ×2 (08:38→19:48)
[2020-10-02] MEDS: CHOLECALCIFEROL 1,000 UNIT TAB PO SCH (08:38)
[2020-10-02] MEDS: ASCORBIC ACID 500 MG TAB PO SCH (08:38)
[2020-10-02] MEDS: ZINC SULFATE 220 MG CAP PO SCH ×2 (08:38→19:48)
[2020-10-02] MEDS: LOSARTAN 25 MG TAB PO SCH (08:38)
[2020-10-02] MEDS: THIAMINE 100 MG TAB PO SCH (08:38)
[2020-10-02] MEDS: CALCIUM CARB-VIT D 500MG-200UN 1 EACH TAB PO SCH ×2 (08:38→17:47)
[2020-10-02] MEDS: CITALOPRAM HYDROBROMIDE 20 MG TAB PO SCH (08:38)
[2020-10-02] MEDS: ATORVASTATIN 10 MG TAB PO SCH (08:38)
[2020-10-02] MEDS: MULTIVITAMINS, THERA 1 EACH TAB PO SCH (08:38)
[2020-10-02 10:06] LABS: African American GFR (CKD) 102.6 (60.0-200.0); Anion Gap 6.8 mmol/L (4.00-12.00); BUN/Creat Ratio 26.67 Ratio (12.00-20.00); Calcium 8.3 mg/dL (8.7-10.3); Carbon Dioxide 23.2 mmol/L (21.6-31.8); Non-African American GFR(CKD) 88.5 (60.0-200.0); Potassium 4.4 mmol/L (3.5-5.5)
[2020-10-02] MEDS: FOLIC ACID 1 MG TAB PO SCH (10:40)
[2020-10-02] MEDS: REMDESIVIR (EUA) 100 MG in SODIUM CHLORIDE 0.9% 250 ML IVPB SCH (10:40)
[2020-10-02 11:35] LABS: Glucose,Whole Blood 146 mg/dL (75-99)
--- NOTE | 2020-10-02 16:46 | P.PN ---
Subjective Progress Note Date: 10/02/20 Principal diagnosis: Covid 19 viral infection This is a pleasant 75-year-old female patient who follows with Dr. Mooney as her primary care physician. She resides in [place]. She has a history of coronary artery disease, chronic obstructive disease, diabetes mellitus type 2, hypertension, hyperlipidemia, rheumatoid arthritis, remote smoking history. She presented to the emergency room yesterday with a 10 day history of fever, chills, diarrhea. She had been exposed to positive Covid 19 family members. She has been feeling weak, multiple near falls due to weakness, dehydration and diarrhea. She also had some mild shortness of breath. Rapid Covid 19 screen was positive. Chest x-ray revealed right pleural reaction and peripheral right- sided pneumonia. Computed tomography scan of the chest revealed a cavitating left pulmonary infiltrate, nonspecific. There is peripheral bilateral groundglass pulmonary interstitial infiltrates. No evidence of pulmonary embolism. She is seen today in consultation on the regular medical floor. She is awake and alert in no acute distress. She is febrile with a temperature of 100.0. She is maintaining O2 saturations in the 90s on room air. Currently 92%. White count 3.6. Hemoglobin 12.5. Lymphocytes 0.5. Sodium 139. Potassium 3.9. Creatinine 0.7. Pro-calcitonin 0.10. Ferritin 359. D-dimer 1.56. LDH 1206. C-reactive protein 52.5. The patient is seen today 10/01/2020 in follow-up on the regular medical floor. She is currently resting comfortably in bed. Awake and alert in no acute distress. Maintaining O2 saturation in the low 90s on room air. She's been afebrile. Hemodynamically stable. White count 5.6. Hemoglobin 12.0. Lymphocytes 0.6. D-dimer 0.81. Sodium 143. Potassium 4.0. Creatinine 0.6. LDH 357. C-reactive protein 7.0. This is day #2 of Remdesivir. Continued on vitamin C, vitamin D, Decadron, Lovenox, Pepcid, zinc. Chest x-ray continues to show peripheral infiltrate throughout the right lung which has progressed. Mild interstitial infiltrate in the left mid lung zone as well. Computed tomography scan of the brain was performed yesterday for some altered mental status. No acute abnormalities detected. On 10/02/2020 patient seen in follow-up on a regular medical surgical floor. Patient was started on Remdesivir yesterday, today will be her second dose. Her Covid 19 PCR was positive. She is on room air pulse ox is 93%, breathing seems to be fairly comfortable at rest, does get exertional dyspnea with exertion, she is afebrile. She continues on oral Decadron, Pepcid, Lovenox 40 mg every 12 hours. CRP and LDH came down significantly since admission, d-dimer was 0.81. Objective - Vital Signs Vital signs: Vital Signs Temp 98.2 F 10/02/20 15:00 Pulse 70 10/02/20 15:00 Resp 20 10/02/20 15:00 BP 134/53 10/02/20 15:00 Pulse Ox 93 L 10/02/20 15:00 Intake & Output 10/01/20 10/02/20 10/02/20 18:59 06:59 18:59 Intake Total 250 300 150 Balance 250 300 150 Intake: Intake, IV Titration 250 300 150 Amount Remdesivir (Eua) 100 mg 250 In Sodium Chloride 0.9% 250 ml @ 250 mls/hr IVPB Q24H JUAN MANUEL Rx#:[id number] Sodium Chloride 0.9% 1, 300 150 000 ml @ 100 mls/hr IV . Q10H JUAN MANUEL Rx#:[id number] Other: Voiding Method Bedside Commode Bedside Commode Bedside Commode # Voids 1 - Exam GENERAL EXAM: Alert, very pleasant, 75-year-old white female on room air with a pulse ox of 93% comfortable in no apparent distress. HEAD: Normocephalic/atraumatic. EYES: Normal reaction of pupils, equal size. Conjunctiva pink, sclera white. NOSE: Clear with pink turbinates. THROAT: No erythema or exudates. NECK: No masses, no JVD, no thyroid enlargement, no adenopathy. CHEST: No chest wall deformity. Symmetrical expansion. LUNGS: Equal air entry with no crackles, wheeze, rhonchi or dullness. CVS: Regular rate and rhythm, normal S1 and S2, no gallops, no murmurs, no rubs ABDOMEN: Soft, nontender. No hepatosplenomegaly, normal bowel sounds, no guarding or rigidity. EXTREMITIES: No clubbing, no edema, no cyanosis, 2+ pulses and upper and lower extremities. MUSCULOSKELETAL: Muscle strength and tone normal. SPINE: No scoliosis or deformity SKIN: No rashes CENTRAL NERVOUS SYSTEM: Alert and oriented -3. No focal deficits, tone is normal in all 4 extremities. PSYCHIATRIC: Alert and oriented -3. Appropriate affect. Intact judgment and insight. - Labs CBC & Chem 7: 10/02/20 05:49 10/02/20 05:49 Labs: Abnormal Lab Results - Last 24 Hours (Table) 10/01/20 10/02/20 10/02/20 Range/Units 21:12 05:49 05:49 Lymphocytes # 0.6 L (1.0-4.8) k/uL BUN/Creatinine Ratio 26.67 H (12.00-20.00) Ratio Glucose 135 H (70-110) mg/dL POC Glucose (mg/dL) 173 H (75-99) mg/dL Calcium 8.3 L (8.7-10.3) mg/dL 10/02/20 10/02/20 Range/Units 07:16 11:33 Lymphocytes # (1.0-4.8) k/uL BUN/Creatinine Ratio (12.00-20.00) Ratio Glucose (70-110) mg/dL POC Glucose (mg/dL) 129 H 146 H (75-99) mg/dL Calcium (8.7-10.3) mg/dL Microbiology - Last 24 Hours (Table) 09/29/20 18:07 Blood Culture - Preliminary Blood No Growth after 48 hours Assessment and Plan Plan: Assessment: 1 Acute hypoxic respiratory failure secondary to acute CoVID 19 pneumonitis 2 Elevated inflammatory markers secondary to above 3 Dehydration, weakness, diarrhea secondary to above 4 Altered mental status secondary to above, computed tomography scan of the brain revealed no acute intracranial process 5 Diabetes mellitus 6 Chronic obstructive pulmonary disease 7 History of chronic tobacco dependence 8 Coronary artery disease and 9 Hypertension 10 Hyperlipidemia 11 Rheumatoid arthritis Plan: Continue current medical treatment, continue Remdesivir. Continue oral Decadron, Pepcid, and Lovenox, patient is on room air, she's been afebrile, we'll continue following inflammatory markers. I performed a history & physical examination of the patient and discussed their management with my nurse practitioner, Lily Vanegas. I reviewed the nurse practitioner's note and agree with the documented findings and plan of care. Lung sounds are positive for diminished breath sounds. The findings and the impression was discussed with the patient. I attest to the documentation by the nurse practitioner. Time with Patient: Less than 30
[2020-10-02 16:49] LABS: Glucose,Whole Blood 196 mg/dL (75-99)
--- NOTE | 2020-10-02 19:07 | PN ---
PROGRESS NOTE DATE OF SERVICE: 10/02/2020 This 75-year-old woman was admitted with acute COVID-19 infection with bilateral pneumonia. She was on remdesivir. The patient is being closely monitored at this time. The chest x-ray, reviewed personally by me, showed significant bilateral pneumonia. Patient also had significant abdominal symptoms, which are also improving at this time. Multiple consultants are following the patient closely. Past medical history reviewed. REVIEW OF SYSTEMS: CARDIOVASCULAR SYSTEM: As mentioned earlier. RESPIRATORY SYSTEM: As mentioned earlier. GI: As mentioned earlier. : No dysuria or retention. NERVOUS SYSTEM: No numbness, weakness. CURRENT MEDICATIONS: Reviewed. They include Tylenol, [place], Xanax, vitamin C, Lipitor, Os-Sanjeev with vitamin D, vitamin D3, Celexa, decadron, Lovenox, Pepcid, folic acid, Motrin, Synthroid, Cozaar, Narcan, Zofran, remdesivir, thiamine, oral zinc. PHYSICAL EXAMINATION: Patient is alert, oriented x3. Pulse is 70, blood pressure 134/83, respiration 20, temperature 98.2, pulse ox 93% on room air. HEENT: Conjunctivae normal. NECK: No jugular venous distention. CARDIOVASCULAR SYSTEM: S1, S2 muffled. RESPIRATORY SYSTEM: Breath sounds diminished at the bases. A few scattered rhonchi and crackles. ABDOMEN: Soft, non-tender. LEGS: No edema. No swelling. NERVOUS SYSTEM: No focal deficit. LABS: CBC within normal limits. Sodium 139, potassium 4.4, glucose 135. ASSESSMENT: 1. Acute COVID-19 infection with bilateral interstitial pneumonia with possible sepsis, present on admission. 2. Possible cavitating pneumonia with possible rheumatoid lung. 3. Nausea, vomiting and diarrhea secondary to COVID-19. 4. Thrombocytopenia secondary to COVID-19. 5. Leukopenia secondary COVID-19. 6. Elevated D-dimer with no evidence of pulmonary embolism. 7. Hyponatremia. 8. Hyperkalemia. 9. Elevated random glucose. 10.Increased AST. 11.Increased LDH and CRP. 12.History of coronary artery disease. 13.History of chronic obstructive pulmonary disease. 14.Diabetes mellitus, type 2. 15.Hypertension. 16.Hyperlipidemia. 17.History of rheumatoid arthritis. 18.Remote history of nicotine dependence. 19.FULL CODE. RECOMMENDATIONS AND DISCUSSION: I recommend to continue current medications, continue symptomatic treatment. Otherwise at this time I recommend continuing with remdesivir. Increase ambulation. Closely follow with Infectious Disease. Guarded prognosis because of multiple complex medical issues. Further recommendations to follow. MMODL / IJN: [id number] /
[2020-10-02 20:23] LABS: Glucose,Whole Blood 215 mg/dL (75-99)
--- NOTE | 2020-10-03 04:06 | PN ---
PROGRESS NOTE DATE OF SERVICE: 10/02/2020 REASON FOR FOLLOWUP: COVID-19 pneumonia. INTERVAL HISTORY: The patient is currently afebrile. The patient is breathing more comfortably, currently on room air. Denies having chest pain. Occasional cough. No sputum. No nausea, no vomiting. No abdominal pain, no diarrhea. PHYSICAL EXAMINATION: Blood pressure 134/53, pulse of 70, temperature 98.2. She is 93% on room air. General description is an elderly female lying in bed in no distress. RESPIRATORY SYSTEM: Unlabored breathing with decreased breath sounds. No wheeze per nursing staff. EXTREMITIES: No edema of the feet. LABS: Hemoglobin 12.1, white count 6.5, BUN 16, creatinine 0.6. Blood culture has been negative. DIAGNOSTIC IMPRESSION AND PLAN: Patient with acute COVID-19 pneumonia in this patient currently undergoing treatment with remdesivir, Decadron, Lovenox to continue along with supportive care and monitor clinical course closely. MMODL / IJN: [id number] /
[2020-10-03] MEDS: LEVOTHYROXINE 50 MCG TAB PO SCH (05:44)
[2020-10-03 07:01] LABS: Glucose,Whole Blood 127 mg/dL (75-99)
[2020-10-03] MEDS: ATORVASTATIN 10 MG TAB PO SCH (08:19)
[2020-10-03] MEDS: LOSARTAN 25 MG TAB PO SCH (08:19)
[2020-10-03] MEDS: ENOXAPARIN 40 MG/0.4 ML SYRINGE SQ SCH ×2 (08:19→21:25)
[2020-10-03] MEDS: CITALOPRAM HYDROBROMIDE 20 MG TAB PO SCH (08:19)
[2020-10-03] MEDS: THIAMINE 100 MG TAB PO SCH (08:19)
[2020-10-03] MEDS: FAMOTIDINE 20 MG TAB PO SCH ×2 (08:19→21:24)
[2020-10-03] MEDS: DEXAMETHASONE SOD PHOSPHATE 10 MG/ML 1 ML VIAL IV SCH (08:19)
[2020-10-03] MEDS: MULTIVITAMINS, THERA 1 EACH TAB PO SCH (08:19)
[2020-10-03] MEDS: FOLIC ACID 1 MG TAB PO SCH (08:19)
[2020-10-03] MEDS: ZINC SULFATE 220 MG CAP PO SCH ×2 (08:19→21:25)
[2020-10-03] MEDS: CALCIUM CARB-VIT D 500MG-200UN 1 EACH TAB PO SCH ×2 (08:20→17:34)
[2020-10-03] MEDS: ASCORBIC ACID 500 MG TAB PO SCH (08:20)
[2020-10-03] MEDS: CHOLECALCIFEROL 1,000 UNIT TAB PO SCH (08:20)
[2020-10-03] MEDS: SODIUM CHLORIDE 0.9% 1,000 ML IV SCH ×2 (09:54→21:27)
--- NOTE | 2020-10-03 10:29 | CDI ---
Documentation Clarification Form Date: 10/03/2020 10:08:05 AM From: Afua Zepeda RN, CCDS Admit Date: 09/29/2020 07:48:00 PM Patient Name: Rayshawn Garber Visit Number: [id number] ATTENTION: The Clinical Documentation Specialists (CDI) and [facility] Coding Staff appreciate your assistance in clarifying documentation. Please respond to the clarification below the line at the bottom and electronically sign. The CDI & [facility] Coding staff will review the response and follow-up if needed. Please note: Queries are made part of the Legal Health Record. If you have any questions, please contact the author of this message via ITS. Dr. Benjamín Brito Altered Mental Status was documented in the 10/01 and 10/02 Attending Progress Notes and requires further specificity. History/Risk Factors: HTN, HLD, RA, Nicotine dependence, DM, COPD Clinical Indicators: 09/30 Attending Progress Note: "The patient also had mild confusion and a CT scan of the brain was also done to complete the workup which showed mild atrophy and chronic small-vessel ischemia." 10/01-10/02 Attending Progress notes: " ROS: NERVOUS SYSTEM: Mild confusion. Altered mental status secondary to above, computed tomography scan of the brain revealed no acute intracranial process." Infectious Process: Covid 19 pneumonia with sepsis, possible cavitating pneumonia Metabolic abnormalities: Hyponatremia, Hyperkalemia 09/29-10/03 Labs: + Coronavirus, LDH 1206/357, CRP 52.5/7, Procalcitonin .10, Ferritin 359.2, D-dimer 1.56, NA+ 132/139, K+ 5.3/3.9 10/01 CXR: "Findings suggest progressive pneumonia" 09/30 CT Brain: Mild atrophy and chronic small vessel ischemia. No acute abnormality." Treatment: CT of Brain Ordered 09/29 Ceftriaxone 2 gm IVPB x 1 dose followed 09/30 by 1 gm Q 24 hrs. X 1 dose Celexa 20 mg Po Daily Decadron IVP 6mg x 10 doses 09/30 to current Remdesivir 200mg IVP x 1 dose followed by 100 mg q 24 hrs. X 4 bags 09/29 0.9% NS IVF Bolus 1L followed by 100 cc/hr. In your professional opinion, please clarify the etiology of the Altered Mental Status, if known. Metabolic Encephalopathy (specify Underlying Medical Illness) Toxic Encephalopathy (specify Underlying Medical Illness) Other condition (please specify) Unable to determine (Last Revision: February 2018) Metabolic Encephalopathy multifactorial MTDD
[2020-10-03 11:48] LABS: Glucose,Whole Blood 168 mg/dL (75-99)
[2020-10-03] MEDS: REMDESIVIR (EUA) 100 MG in SODIUM CHLORIDE 0.9% 250 ML IVPB SCH (12:44)
--- NOTE | 2020-10-03 16:34 | P.PN ---
Subjective Progress Note Date: 10/03/20 Principal diagnosis: Covid 19 viral infection This is a pleasant 75-year-old female patient who follows with Dr. Mooney as her primary care physician. She resides in [place]. She has a history of coronary artery disease, chronic obstructive disease, diabetes mellitus type 2, hypertension, hyperlipidemia, rheumatoid arthritis, remote smoking history. She presented to the emergency room yesterday with a 10 day history of fever, chills, diarrhea. She had been exposed to positive Covid 19 family members. She has been feeling weak, multiple near falls due to weakness, dehydration and diarrhea. She also had some mild shortness of breath. Rapid Covid 19 screen was positive. Chest x-ray revealed right pleural reaction and peripheral right- sided pneumonia. Computed tomography scan of the chest revealed a cavitating left pulmonary infiltrate, nonspecific. There is peripheral bilateral groundglass pulmonary interstitial infiltrates. No evidence of pulmonary embolism. She is seen today in consultation on the regular medical floor. She is awake and alert in no acute distress. She is febrile with a temperature of 100.0. She is maintaining O2 saturations in the 90s on room air. Currently 92%. White count 3.6. Hemoglobin 12.5. Lymphocytes 0.5. Sodium 139. Potassium 3.9. Creatinine 0.7. Pro-calcitonin 0.10. Ferritin 359. D-dimer 1.56. LDH 1206. C-reactive protein 52.5. The patient is seen today 10/01/2020 in follow-up on the regular medical floor. She is currently resting comfortably in bed. Awake and alert in no acute distress. Maintaining O2 saturation in the low 90s on room air. She's been afebrile. Hemodynamically stable. White count 5.6. Hemoglobin 12.0. Lymphocytes 0.6. D-dimer 0.81. Sodium 143. Potassium 4.0. Creatinine 0.6. LDH 357. C-reactive protein 7.0. This is day #2 of Remdesivir. Continued on vitamin C, vitamin D, Decadron, Lovenox, Pepcid, zinc. Chest x-ray continues to show peripheral infiltrate throughout the right lung which has progressed. Mild interstitial infiltrate in the left mid lung zone as well. Computed tomography scan of the brain was performed yesterday for some altered mental status. No acute abnormalities detected. On 10/02/2020 patient seen in follow-up on a regular medical surgical floor. Patient was started on Remdesivir yesterday, today will be her second dose. Her Covid 19 PCR was positive. She is on room air pulse ox is 93%, breathing seems to be fairly comfortable at rest, does get exertional dyspnea with exertion, she is afebrile. She continues on oral Decadron, Pepcid, Lovenox 40 mg every 12 hours. CRP and LDH came down significantly since admission, d-dimer was 0.81. On 10/03/2020 patient seen in follow-up on general medical surgical floor, she is doing well, feeling better, she continues on Remdesivir. No worsening dyspnea, cough, or chest discomfort. Inflammatory markers are trending down, she has had no acute events overnight. Blood cultures have been negative. She is on Decadron, Lovenox, vitamin C and zinc Objective - Vital Signs Vital signs: Vital Signs Temp 97.7 F 10/03/20 15:00 Pulse 65 10/03/20 15:00 Resp 18 10/03/20 15:00 BP 128/63 10/03/20 15:00 Pulse Ox 92 L 10/03/20 15:00 Intake & Output 10/02/20 10/03/20 10/03/20 18:59 06:59 18:59 Intake Total 150 300 580 Balance 150 300 580 Intake: Intake, IV Titration 150 300 Amount Sodium Chloride 0.9% 1, 150 300 000 ml @ 100 mls/hr IV . Q10H [facility] Rx#:[id number] Oral 580 Other: Voiding Method Bedside Commode Bedside Commode Bedside Commode # Voids 2 - Exam GENERAL EXAM: Alert, very pleasant, 75-year-old white female on 2 L of oxygen with a pulse ox of 92% comfortable in no apparent distress. HEAD: Normocephalic/atraumatic. EYES: Normal reaction of pupils, equal size. Conjunctiva pink, sclera white. NOSE: Clear with pink turbinates. THROAT: No erythema or exudates. NECK: No masses, no JVD, no thyroid enlargement, no adenopathy. CHEST: No chest wall deformity. Symmetrical expansion. LUNGS: Equal air entry with no crackles, wheeze, rhonchi or dullness. CVS: Regular rate and rhythm, normal S1 and S2, no gallops, no murmurs, no rubs ABDOMEN: Soft, nontender. No hepatosplenomegaly, normal bowel sounds, no guarding or rigidity. EXTREMITIES: No clubbing, no edema, no cyanosis, 2+ pulses and upper and lower extremities. MUSCULOSKELETAL: Muscle strength and tone normal. SPINE: No scoliosis or deformity SKIN: No rashes CENTRAL NERVOUS SYSTEM: Alert and oriented -3. No focal deficits, tone is normal in all 4 extremities. PSYCHIATRIC: Alert and oriented -3. Appropriate affect. Intact judgment and insight. - Labs CBC & Chem 7: 10/02/20 05:49 10/02/20 05:49 Labs: Abnormal Lab Results - Last 24 Hours (Table) 10/02/20 10/02/20 10/03/20 Range/Units 16:47 20:21 07:00 POC Glucose (mg/dL) 196 H 215 H 127 H (75-99) mg/dL 10/03/20 Range/Units 11:46 POC Glucose (mg/dL) 168 H (75-99) mg/dL Microbiology - Last 24 Hours (Table) 09/29/20 18:07 Blood Culture - Preliminary Blood No Growth after 72 hours Assessment and Plan Plan: Assessment: 1 Acute hypoxic respiratory failure secondary to acute CoVID 19 pneumonitis 2 Elevated inflammatory markers secondary to above 3 Dehydration, weakness, diarrhea secondary to above 4 Altered mental status secondary to above, computed tomography scan of the brain revealed no acute intracranial process 5 Diabetes mellitus 6 Chronic obstructive pulmonary disease 7 History of chronic tobacco dependence 8 Coronary artery disease and 9 Hypertension 10 Hyperlipidemia 11 Rheumatoid arthritis Plan: Continue current medical treatment, patient will receive her 4th dose of Remdesivir today, she is improving, breathing easier, vital signs are stable, increase activity as tolerated, encouraged patient to sit up in the chair, and ambulate in the room. If continues to be stable, she may be considered for discharge home tomorrow after she finishes her last dose of Remdesivir I performed a history & physical examination of the patient and discussed their management with my nurse practitioner, Lily Vanegas. I reviewed the nurse practitioner's note and agree with the documented findings and plan of care. Lung sounds are positive for diminished breath sounds. The findings and the impression was discussed with the patient. I attest to the documentation by the nurse practitioner. Time with Patient: Less than 30
[2020-10-03 16:40] LABS: Glucose,Whole Blood 228 mg/dL (75-99)
--- NOTE | 2020-10-03 17:16 | PN ---
PROGRESS NOTE DATE OF SERVICE: 10/03/2020 This 75-year-old woman who was admitted with acute COVID-19 infection, bilateral interstitial pneumonia, is on remdesivir. No chest pain. No palpitations. No fever. Dr. Chase is following the patient closely. PHYSICAL EXAMINATION: Pulse is 53, blood pressure 130/62, respiration 17, temperature 98.4, pulse ox 93% on room air. HEENT: Conjunctivae normal. NECK: No jugular venous distention. CARDIOVASCULAR SYSTEM: S1, S2 muffled. RESPIRATORY SYSTEM: Breath sounds diminished at the bases. No rhonchi. No crackles. ABDOMEN: Soft. LEGS: No edema. No swelling. NERVOUS SYSTEM: No focal deficit. LABS: CBC, CMP noted. The LDH is still elevated as well as CRP. ASSESSMENT: 1. Acute COVID-19 infection with bilateral interstitial pneumonia with possible sepsis, present on admission. 2. Possible cavitating pneumonia with possible rheumatoid lung. 3. Nausea, vomiting and diarrhea, possibly secondary to COVID-19. 4. Thrombocytopenia secondary to COVID-19. 5. Leukopenia secondary to COVID-19. 6. Elevated D-dimer and no evidence of pulmonary embolism. 7. Hyponatremia. 8. Hypokalemia. 9. Elevated random blood glucose. 10.Increased AST. 11.Increased LDH and CRP. 12.History of coronary artery disease. 13.History of chronic obstructive pulmonary disease. 14.Diabetes mellitus, type 2. 15.Hypertension. 16.Hyperlipidemia. 17.History of rheumatoid arthritis. 18.Remote history of nicotine dependence. 19.FULL CODE. RECOMMENDATIONS AND DISCUSSION: I recommend to continue current medications, continue with the monitoring, symptomatic treatment. Otherwise at this time continue the bronchodilators. Continue to monitor blood sugars. Continue to monitor inflammatory markers. Prognosis guarded. Continue with remdesivir. Further recommendations to follow. MMODL / IJN: [id number] /
[2020-10-03 21:03] LABS: Glucose,Whole Blood 206 mg/dL (75-99)
--- NOTE | 2020-10-04 03:58 | PN ---
PROGRESS NOTE DATE OF SERVICE: 10/03/2020. REASON FOR FOLLOWUP: Acute COVID-19 pneumonia. INTERVAL HISTORY: The patient is currently afebrile. The patient is breathing comfortably. The patient denies having any chest pain or cough. No nausea, no vomiting. No abdominal pain or diarrhea. PHYSICAL EXAMINATION: Blood pressure 128/63, pulse of 65, temperature 97.7. She is 92% on 2 L nasal cannula. General description is an elderly female up in the chair in no distress. RESPIRATORY SYSTEM: Unlabored breathing, decreased breath sounds at the bases. No wheeze. HEART: S1, S2. Regular rate and rhythm. ABDOMEN: Soft, no tenderness. LABS: No new labs have been obtained today. DIAGNOSTIC IMPRESSION AND PLAN: Patient with acute COVID-19 pneumonia in this patient who seemed to have shown overall clinical improvement. She is currently on remdesivir, in addition to the Decadron, Lovenox, zinc sulfate to continue and monitor clinical course closely. Continue supportive care. MMODL / IJN: [id number] /
[2020-10-04] MEDS: LEVOTHYROXINE 50 MCG TAB PO SCH (06:11)
[2020-10-04 06:18] LABS: Basophils # (A) 0.1 k/uL (0-0.2); Basophils % (A) 1 %; Eosinophils % (A) 0 %; HCT 35.2 % (34.0-46.0); HGB 12.1 gm/dL (11.4-16.0); Lymphocytes # (A) 0.7 k/uL (1.0-4.8); Lymphocytes % (A) 12 %; MCHC 34.4 g/dL (31.0-37.0); MCV 87.2 fL (80.0-100.0); Mean Platelet Volume 9.1; Monocytes # (A) 0.5 k/uL (0-1.0); Monocytes % (A) 9 %; Neutrophils # (A) 4.2 k/uL (1.3-7.7); Neutrophils % (A) 75 %; Platelet Count 208 k/uL (150-450); RBC 4.04 m/uL (3.80-5.40); RDW 12.6 % (11.5-15.5); WBC 5.6 k/uL (3.8-10.6)
[2020-10-04 07:17] LABS: Glucose,Whole Blood 135 mg/dL (75-99)
[2020-10-04] MEDS: ATORVASTATIN 10 MG TAB PO SCH (08:28)
[2020-10-04] MEDS: DEXAMETHASONE SOD PHOSPHATE 10 MG/ML 1 ML VIAL IV SCH (08:28)
[2020-10-04] MEDS: CITALOPRAM HYDROBROMIDE 20 MG TAB PO SCH (08:28)
[2020-10-04] MEDS: CALCIUM CARB-VIT D 500MG-200UN 1 EACH TAB PO SCH ×2 (08:28→17:13)
[2020-10-04] MEDS: ASCORBIC ACID 500 MG TAB PO SCH (08:28)
[2020-10-04] MEDS: CHOLECALCIFEROL 1,000 UNIT TAB PO SCH (08:28)
[2020-10-04] MEDS: FOLIC ACID 1 MG TAB PO SCH (08:28)
[2020-10-04] MEDS: MULTIVITAMINS, THERA 1 EACH TAB PO SCH (08:28)
[2020-10-04] MEDS: LOSARTAN 25 MG TAB PO SCH (08:28)
[2020-10-04] MEDS: FAMOTIDINE 20 MG TAB PO SCH (08:28)
[2020-10-04] MEDS: THIAMINE 100 MG TAB PO SCH (08:28)
[2020-10-04] MEDS: ENOXAPARIN 40 MG/0.4 ML SYRINGE SQ SCH (08:28)
[2020-10-04] MEDS: ZINC SULFATE 220 MG CAP PO SCH (08:28)
[2020-10-04] MEDS: SODIUM CHLORIDE 0.9% 1,000 ML IV SCH ×2 (08:29→17:13)
[2020-10-04 08:47] VITALS: RESP 20
[2020-10-04 09:42] LABS: African American GFR (CKD) 97.5 (60.0-200.0); Anion Gap 5.9 mmol/L (4.00-12.00); BUN/Creat Ratio 24.29 Ratio (12.00-20.00); C Reactive Protein 2.3 mg/dL (0.0-0.8); Calcium 8.5 mg/dL (8.7-10.3); Carbon Dioxide 27.1 mmol/L (21.6-31.8); Non-African American GFR(CKD) 84.2 (60.0-200.0); Potassium 3.8 mmol/L (3.5-5.5)
[2020-10-04 10:53] LABS: Glucose,Whole Blood 155 mg/dL (75-99)
[2020-10-04] MEDS: REMDESIVIR (EUA) 100 MG in SODIUM CHLORIDE 0.9% 250 ML IVPB SCH (11:10)
[2020-10-04 15:17] VITALS: PULSE 55; TEMP 97.6
[2020-10-04 15:19] VITALS: BP 173/70
--- NOTE | 2020-10-04 16:04 | P.PN ---
Subjective Progress Note Date: 10/04/20 Principal diagnosis: CoVID 19 viral infection This is a pleasant 75-year-old female patient who follows with Dr. Mooney as her primary care physician. She resides in [place]. She has a history of coronary artery disease, chronic obstructive disease, diabetes mellitus type 2, hypertension, hyperlipidemia, rheumatoid arthritis, remote smoking history. She presented to the emergency room yesterday with a 10 day history of fever, chills, diarrhea. She had been exposed to positive Covid 19 family members. She has been feeling weak, multiple near falls due to weakness, dehydration and diarrhea. She also had some mild shortness of breath. Rapid Covid 19 screen was positive. Chest x-ray revealed right pleural reaction and peripheral right- sided pneumonia. Computed tomography scan of the chest revealed a cavitating left pulmonary infiltrate, nonspecific. There is peripheral bilateral groundglass pulmonary interstitial infiltrates. No evidence of pulmonary embolism. She is seen today in consultation on the regular medical floor. She is awake and alert in no acute distress. She is febrile with a temperature of 100.0. She is maintaining O2 saturations in the 90s on room air. Currently 92%. White count 3.6. Hemoglobin 12.5. Lymphocytes 0.5. Sodium 139. Potassium 3.9. Creatinine 0.7. Pro-calcitonin 0.10. Ferritin 359. D-dimer 1.56. LDH 1206. C-reactive protein 52.5. The patient is seen today 10/01/2020 in follow-up on the regular medical floor. She is currently resting comfortably in bed. Awake and alert in no acute distress. Maintaining O2 saturation in the low 90s on room air. She's been afebrile. Hemodynamically stable. White count 5.6. Hemoglobin 12.0. Lymphocytes 0.6. D-dimer 0.81. Sodium 143. Potassium 4.0. Creatinine 0.6. LDH 357. C-reactive protein 7.0. This is day #2 of Remdesivir. Continued on vitamin C, vitamin D, Decadron, Lovenox, Pepcid, zinc. Chest x-ray continues to show peripheral infiltrate throughout the right lung which has progressed. Mild interstitial infiltrate in the left mid lung zone as well. Computed tomography scan of the brain was performed yesterday for some altered mental status. No acute abnormalities detected. The patient is seen today 10/04/2020 in follow-up on the regular medical floor. She is sitting up in a chair at the bedside. Awake and alert in no acute distress. She is maintaining good O2 saturations in the 90s on room air. Today is her fifth day of Remdesivir. She is feeling nearly back to her baseline. Hoping to go home today. Objective - Vital Signs Vital signs: Vital Signs Temp 97.6 F 10/04/20 15:00 Pulse 55 L 10/04/20 15:00 Resp 20 10/04/20 15:00 BP 173/70 10/04/20 15:00 Pulse Ox 97 10/04/20 15:00 Intake & Output 10/03/20 10/04/20 10/04/20 18:59 06:59 18:59 Intake Total 580 250 Balance 580 250 Intake: IV 250 Remdesivir (Eua) 100 mg 250 In Sodium Chloride 0.9% 250 ml @ 250 mls/hr IVPB Q24H [facility] Rx#:[id number] Oral 580 Other: Voiding Method Bedside Commode Bedside Commode # Voids 2 - Exam GENERAL EXAM: Alert, pleasant 75-year-old female patient, on room air, comfortable in no apparent distress. HEAD: Normocephalic. EYES: Normal reaction of pupils, equal size. NOSE: Clear with pink turbinates. THROAT: No erythema or exudates. NECK: No masses, no JVD. CHEST: No chest wall deformity. LUNGS: Equal air entry with few scattered rhonchi bilaterally CVS: S1 and S2 normal with no audible murmur, regular rhythm. ABDOMEN: No hepatosplenomegaly, normal bowel sounds, no guarding or rigidity. SPINE: No scoliosis or deformity SKIN: No rashes CENTRAL NERVOUS SYSTEM: No focal deficits, tone is normal in all 4 extremities. EXTREMITIES: There is no peripheral edema. No clubbing, no cyanosis. Peripheral pulses are intact. - Labs CBC & Chem 7: 10/04/20 06:05 10/04/20 06:05 Labs: Abnormal Lab Results - Last 24 Hours (Table) 10/03/20 10/03/20 10/04/20 Range/Units 16:39 21:02 06:05 Lymphocytes # 0.7 L (1.0-4.8) k/uL BUN/Creatinine Ratio (12.00-20.00) Ratio Glucose (70-110) mg/dL POC Glucose (mg/dL) 228 H 206 H (75-99) mg/dL Calcium (8.7-10.3) mg/dL Lactate Dehydrogenase (120-246) U/L C-Reactive Protein (0.0-0.8) mg/dL 10/04/20 10/04/20 10/04/20 Range/Units 06:05 07:16 10:51 Lymphocytes # (1.0-4.8) k/uL BUN/Creatinine Ratio 24.29 H (12.00-20.00) Ratio Glucose 160 H (70-110) mg/dL POC Glucose (mg/dL) 135 H 155 H (75-99) mg/dL Calcium 8.5 L (8.7-10.3) mg/dL Lactate Dehydrogenase 389 H (120-246) U/L C-Reactive Protein 2.3 H (0.0-0.8) mg/dL Microbiology - Last 24 Hours (Table) 09/29/20 18:07 Blood Culture - Preliminary Blood No Growth after 96 hours Assessment and Plan Assessment: 1 Acute hypoxic respiratory failure secondary to acute CoVID 19 pneumonitis 2 Elevated inflammatory markers secondary to above 3 Dehydration, weakness, diarrhea secondary to above 4 Altered mental status secondary to above, computed tomography scan of the brain revealed no acute intracranial process 5 Diabetes mellitus 6 Chronic obstructive 7 History of chronic tobacco dependence 8 Coronary artery disease and 9 Hypertension 10 Hyperlipidemia 11 Rheumatoid arthritis Plan: The patient was seen and evaluated by Dr. Gricelda Ron today Cleared for discharge from the pulmonary standpoint I, the cosigning physician, performed a history & physical examination of the patient. Lungs sounds with bilateral rhonchi. Maintaining good O2 saturations in the 90s on room air. I discussed the assessment and plan of care with my nurse practitioner, Stephanie Posada. I attest to the above note as dictated by her.
--- NOTE | 2020-10-05 03:16 | DS ---
DISCHARGE SUMMARY DATE OF SERVICE: 10/04/2020 FINAL DIAGNOSES: 1. Acute COVID-19 infection with bilateral interstitial pneumonia with possible sepsis, present on admission. 2. Possible cavitary pneumonia with possible rheumatoid lung. 3. Nausea, vomiting, diarrhea, possibly secondary to COVID-19. 4. Thrombocytopenia secondary to COVID-19. 5. Leukopenia secondary to COVID-19. 6. Elevated D-dimer with no evidence of pulmonary embolism. 7. Hyponatremia. 8. Hyperkalemia. 9. Elevated random glucose. 10.Increased AST. 11.Increased LDH and CRP. 12.History of coronary artery disease. 13.History of chronic obstructive pulmonary disease. 14.Diabetes mellitus type 2. 15.Hypertension. 16.Hyperlipidemia. 17.History of rheumatoid arthritis. 18.Remote history of nicotine dependence. 19.FULL CODE. DISCHARGE DISPOSITION: The patient will be discharged in stable condition with guarded prognosis. Total time 35 minutes. HISTORY OF PRESENT ILLNESS: This 75-year-old woman with past medical history of multiple medical problems admitted with acute COVID-19 pneumonia, sepsis, multiple other medical problems. Patient also treated with remdesivir. Symptomatic treatment was given. Dr. Madison and Dr. Chase saw the patient. Patient improved significantly. On exam, vitals are stable. CARDIOVASCULAR: S1, S2 muffled. ABDOMEN: Soft. NERVOUS SYSTEM: No edema. DISCHARGE ADVICE AND MEDICATIONS: 1. Diet is cardiac. 2. Activity limited until followup. 3. Follow up with Dr. Mooney in 2-3 days. 4. Follow up with Dr. Chase and Dr. Madison as recommended. 5. Celexa 20 mg daily. 6. Cozaar 25 mg daily. 7. Glucophage 500 mg p.o. b.i.d. 8. Lipitor 10 mg daily. 9. Synthroid 50 mcg p.o. daily. 10.Vitamin C 1000 mg. 11.Vitamin D3, 1000 daily. 12.Albuterol 2 puffs q.6 p.r.n. 13.Dexamethasone 6 mg daily for 5 more days. 14.Folic acid 1 mg daily. 15.Multivitamins one p.o. daily. 16.Zinc 220 mg p.o. b.i.d. 17.Calcium with vitamin D one p.o. b.i.d. 18.Pepcid 20 mg b.i.d. 19.Tylenol p.r.n. 20.Thiamine 100 mg p.o. daily. Once again the patient will be discharged in a stable condition with guarded prognosis. MMDGL / VIVIN: [id number] /
== END 2020-10-04 18:10 | disposition home or self-care (01) | DRG 871 ==
LOC: EC 16:19 → 4SSUR 19:48
PROVIDERS: ADMIT Hospitalist; ATTEND Hospitalist
DX: A41.89 Other specified sepsis (principal); U07.1 COVID-19; G93.41 Metabolic encephalopathy; J12.89 Other viral pneumonia; J96.01 Acute respiratory failure with hypoxia; J44.0 Chronic obstructive pulmonary disease with (acute) lower respiratory infection; E87.1 Hypo-osmolality and hyponatremia; J84.9 Interstitial pulmonary disease, unspecified; R29.6 Repeated falls; I25.10 Atherosclerotic heart disease of native coronary artery without angina pectoris; E11.9 Type 2 diabetes mellitus without complications; I10 Essential (primary) hypertension; E87.6 Hypokalemia; E87.5 Hyperkalemia; E86.0 Dehydration; E78.5 Hyperlipidemia, unspecified; D72.810 Lymphocytopenia; M06.9 Rheumatoid arthritis, unspecified; D69.59 Other secondary thrombocytopenia; Z88.2 Allergy status to sulfonamides; Z79.84 Long term (current) use of oral hypoglycemic drugs; Z87.891 Personal history of nicotine dependence; Z79.899 Other long term (current) drug therapy; Z79.890 Hormone replacement therapy
CPT/HCPCS: 36415; 70450; 71045; 71275; 80048; 80053; 81003; 82728; 83605; 83615; 83735; 84145; 85025; 85379; 85610; 85730; 86140; 87040; 87635; 93005; 96361; 96365; 99285